=== PATIENT | female | born 1935 ===

== ENCOUNTER 2017-08-15 12:54 | Outpatient (CLI) | payer OTHER ==
[~2017-08-15 12:54] MED LIST: ALTACE10 MG; APETIGEN-PLUS1 EACH; CITALOPRAM HBR40 MG; SYNTHROID50 MCG; ZOCOR5 MG
== END 2017-08-15 12:59 | disposition home or self-care (01) ==
LOC: SONOGRAMA 12:54
DX: M12.832 Other specific arthropathies, not elsewhere classified, left wrist (principal); M19.032 Primary osteoarthritis, left wrist

== ENCOUNTER 2018-08-25 20:08 | Emergency (ER) | payer OTHER ==
[~2018-08-25] VITALS: Ht 152.4 cm; Wt 63.5 kg
[2018-08-25] MEDS ORDERED: ZOCOR40 MG (21:01)
[2018-08-25] MEDS ORDERED: SYNTHROID100 MCG (21:01)
[2018-08-25] MEDS ORDERED: ALTACE10 MG (21:01)
[2018-08-25] MEDS ORDERED: FLAX OIL1000 MG (21:02)
[2018-08-25] MEDS ORDERED: ASPIRIN81 MG (21:02)
[2018-08-26] MEDS ORDERED: BACTRIM DS TAB1 EACH PO (03:49)
[2018-08-26] MEDS ORDERED: INTESTINEX680 M1 PO (03:49)
== END 2018-08-26 03:46 | disposition home or self-care (01) ==
LOC: ER 20:08
DX: I63.89 Other cerebral infarction (principal); R41.0 Disorientation, unspecified; E87.1 Hypo-osmolality and hyponatremia; N39.0 Urinary tract infection, site not specified

== ENCOUNTER 2019-01-26 17:32 | Emergency (ER) | payer OTHER ==
[~2019-01-26] VITALS: Ht 165.1 cm; Wt 61.2 kg
[~2019-01-26 17:32] MED LIST changes: +ASPIRIN81 MG; +BACTRIM DS TAB1 EACH PO; +FLAX OIL1000 MG; +INTESTINEX680 M1 PO; +SYNTHROID100 MCG; +ZOCOR40 MG
[2019-01-26] MEDS ORDERED: CLONAZEPAM0.5 M1 (18:09)
[2019-01-26] MEDS ORDERED: SYNTHROID125 MCG (18:09)
== END 2019-01-26 21:57 | disposition home or self-care (01) ==
LOC: ER 17:32
DX: S50.12XA Contusion of left forearm, initial encounter (principal); S50.01XA Contusion of right elbow, initial encounter; S39.82XA Other specified injuries of lower back, initial encounter; N39.0 Urinary tract infection, site not specified; G30.8 Other Alzheimer's disease; R55 Syncope and collapse; F02.80 Dementia in other diseases classified elsewhere, unspecified severity, without behavioral disturbance, psychotic disturbance, mood disturbance, and anxiety; W18.09XA Striking against other object with subsequent fall, initial encounter; Y93.89 Activity, other specified; Y92.89 Other specified places as the place of occurrence of the external cause; Y99.8 Other external cause status

== ENCOUNTER 2020-08-22 18:45 | Inpatient (IN) | payer OTHER ==
[~2020-08-22] VITALS: Ht 167.6 cm; Wt 54.4 kg
[~2020-08-22 18:45] MED LIST changes: +CLONAZEPAM0.5 M1; +SYNTHROID125 MCG
[2020-08-22] MEDS ORDERED: SERTRALINE20 MG/1 ML (18:50)
[2020-08-22] MEDS ORDERED: HORIZANT300 MG (18:50)
[2020-08-24] MEDS ORDERED: GABAPENTIN100 M2 (08:01)
[2020-08-24] MEDS ORDERED: VITAMIN B-12500 MCG (08:01)
[2020-08-24] MEDS ORDERED: FOLIC ACID0.4 MG (08:01)
[2020-09-03] MEDS ORDERED: SERTRALINE HCL50 MG PO (17:07)
== END 2020-09-02 15:15 | DRG 521 ==
LOC: ER 18:45 → SURH 08-23 08:55 → SURG 08-23 08:55 → ICU 08-25 18:32 → SURH 08-29 13:03
PROVIDERS: ADMIT Orthopaedic Surgery; ATTEND Orthopaedic Surgery
PROC: 4A033R1 Measurement of Arterial Saturation, Peripheral, Percutaneous Approach (ICD-10-PCS; 2020-08-24)
PROC: 0SRS0J9 Replacement of Left Hip Joint, Femoral Surface with Synthetic Substitute, Cemented, Open Approach (ICD-10-PCS; principal; 2020-08-24 11:00)
PROC: 0BH17EZ Insertion of Endotracheal Airway into Trachea, Via Natural or Artificial Opening (ICD-10-PCS; 2020-08-25)
PROC: 5A1955Z Respiratory Ventilation, Greater than 96 Consecutive Hours (ICD-10-PCS; 2020-08-25)
PROC: B24BZZZ Ultrasonography of Heart with Aorta (ICD-10-PCS; 2020-08-26)
PROC: 30233N1 Transfusion of Nonautologous Red Blood Cells into Peripheral Vein, Percutaneous Approach (ICD-10-PCS; 2020-08-29)
DX: S72.092A Other fracture of head and neck of left femur, initial encounter for closed fracture (principal); J96.00 Acute respiratory failure, unspecified whether with hypoxia or hypercapnia; E87.1 Hypo-osmolality and hyponatremia; N39.0 Urinary tract infection, site not specified; I97.121 Postprocedural cardiac arrest following other surgery; W18.39XA Other fall on same level, initial encounter; E03.8 Other specified hypothyroidism; Y83.8 Other surgical procedures as the cause of abnormal reaction of the patient, or of later complication, without mention of misadventure at the time of the procedure

== ENCOUNTER 2020-09-03 16:56 | Inpatient (IN) | payer OTHER ==
[~2020-09-03] VITALS: Ht 167.6 cm; Wt 61.2 kg
[~2020-09-03 16:56] MED LIST changes: +FOLIC ACID0.4 MG; +GABAPENTIN100 M2; +HORIZANT300 MG; +SERTRALINE20 MG/1 ML; +VITAMIN B-12500 MCG
[2020-09-03] MEDS ORDERED: SERTRALINE HCL50 MG PO (17:07)
== END 2020-09-18 14:09 | DRG 4 ==
LOC: ER 16:56 → MEDJ 09-04 09:11 → O/R 09-09 15:30 → SURH 09-10 12:37
PROVIDERS: Otolaryngology Otology & Neurotology; ADMIT Internal Medicine Cardiovascular Disease; ATTEND Internal Medicine Cardiovascular Disease
PROC: 02HV33Z Insertion of Infusion Device into Superior Vena Cava, Percutaneous Approach (ICD-10-PCS; 2020-09-04)
PROC: 4A12X4Z Monitoring of Cardiac Electrical Activity, External Approach (ICD-10-PCS; 2020-09-07)
PROC: 5A1955Z Respiratory Ventilation, Greater than 96 Consecutive Hours (ICD-10-PCS; 2020-09-08)
PROC: 0CJS8ZZ Inspection of Larynx, Via Natural or Artificial Opening Endoscopic (ICD-10-PCS; 2020-09-08)
PROC: 0B110F4 Bypass Trachea to Cutaneous with Tracheostomy Device, Open Approach (ICD-10-PCS; principal; 2020-09-08 19:30)
PROC: 0DH63UZ Insertion of Feeding Device into Stomach, Percutaneous Approach (ICD-10-PCS; 2020-09-15)
PROC: 3E0G76Z Introduction of Nutritional Substance into Upper GI, Via Natural or Artificial Opening (ICD-10-PCS; 2020-09-16)
DX: J38.02 Paralysis of vocal cords and larynx, bilateral (principal); J96.00 Acute respiratory failure, unspecified whether with hypoxia or hypercapnia; F02.81 Dementia in other diseases classified elsewhere, unspecified severity, with behavioral disturbance; R13.19 Other dysphagia; G30.9 Alzheimer's disease, unspecified; I10 Essential (primary) hypertension; E03.9 Hypothyroidism, unspecified; Z96.642 Presence of left artificial hip joint; Z98.890 Other specified postprocedural states

== ENCOUNTER 2020-10-06 06:41 | Emergency (ER) | payer OTHER ==
[~2020-10-06] VITALS: Ht 165.1 cm; Wt 61.2 kg
[~2020-10-06 06:41] MED LIST changes: +SERTRALINE HCL50 MG PO
[2020-10-06] MEDS ORDERED: ATORVASTATIN CA20 MG (06:45)
[2020-10-06] MEDS ORDERED: BUPROPION HCL75 MG (06:45)
[2020-10-06] MEDS ORDERED: ARICEPT5 MG (06:46)
[2020-10-06] MEDS ORDERED: PEPCID AC20 MG (06:46)
[2020-10-06] MEDS ORDERED: FLUDROCORTISON0.1 MG (06:46)
[2020-10-06] MEDS ORDERED: DEMECLOCYCLINE300 MG (06:46)
[2020-10-06] MEDS ORDERED: XOPENEX0.63 MG/3 (06:47)
[2020-10-06] MEDS ORDERED: ZESTRIL20 MG (06:47)
[2020-10-06] MEDS ORDERED: SYNTHROID200 MCG (06:48)
[2020-10-06] MEDS ORDERED: POTASSIUM CHLO20 ME1 (06:48)
[2020-10-06] MEDS ORDERED: CARAFATE1 GM (06:48)
[2020-10-06] MEDS ORDERED: TRAZODONE HCL150 MG (06:48)
[2020-10-06] MEDS ORDERED: VITAMINA D3 (06:49)
== END 2020-10-06 18:32 | disposition home or self-care (01) ==
LOC: ER 06:41
DX: K94.29 Other complications of gastrostomy (principal); N39.0 Urinary tract infection, site not specified; R31.29 Other microscopic hematuria; Z03.818 Encounter for observation for suspected exposure to other biological agents ruled out; F03.91 Unspecified dementia, unspecified severity, with behavioral disturbance; F05 Delirium due to known physiological condition; R53.1 Weakness

== ENCOUNTER 2020-12-02 09:36 | Emergency (ER) | payer OTHER ==
[~2020-12-02] VITALS: Ht 152.4 cm; Wt 36.3 kg
[~2020-12-02 09:36] MED LIST changes: +ARICEPT5 MG; +ATORVASTATIN CA20 MG; +BUPROPION HCL75 MG; +CARAFATE1 GM; +DEMECLOCYCLINE300 MG; +FLUDROCORTISON0.1 MG; +PEPCID AC20 MG; +POTASSIUM CHLO20 ME1; +SYNTHROID200 MCG; +TRAZODONE HCL150 MG; +VITAMINA D3; +XOPENEX0.63 MG/3; +ZESTRIL20 MG
[2020-12-02] MEDS ORDERED: INTESTINEX680 M1 PO (14:43)
== END 2020-12-02 18:07 | disposition home or self-care (01) ==
LOC: ER 09:36
DX: K94.23 Gastrostomy malfunction (principal); F03.91 Unspecified dementia, unspecified severity, with behavioral disturbance; J38.02 Paralysis of vocal cords and larynx, bilateral; Z74.01 Bed confinement status

== ENCOUNTER 2021-09-27 12:29 | Emergency (ER) | payer OTHER ==
[~2021-09-27] VITALS: Ht 167.6 cm; Wt 59.0 kg
[2021-09-27] MEDS ORDERED: TRAZODONE HCL150 MG (13:10)
[2021-09-27] MEDS ORDERED: LEVOTHYROXINE25 MCG PO (13:13)
== END 2021-09-27 20:50 | disposition home or self-care (01) ==
LOC: ER 12:29
DX: K94.23 Gastrostomy malfunction (principal); R10.9 Unspecified abdominal pain; Z20.822 Contact with and (suspected) exposure to COVID-19; I10 Essential (primary) hypertension